=== PATIENT | female | born 2000 | race Caucasian/White ===

== ENCOUNTER 2023-04-02 22:02 | Emergency (ER) | payer OTHER ==
[~2023-04-02] VITALS: Ht 167.6 cm; Wt 63.6 kg
[2023-04-02 22:09] VITALS: BP 112/70; TEMP 98.2
[2023-04-02 23:05] VITALS: PULSE 86
== END 2023-04-02 23:05 | disposition home or self-care (01) ==
LOC: COL.ER 22:02
DX: S61.012A Laceration without foreign body of left thumb without damage to nail, initial encounter (principal); W26.8XXA Contact with other sharp object(s), not elsewhere classified, initial encounter